=== PATIENT | male | born 1980 | race Caucasian/White ===

== ENCOUNTER 2017-03-31 13:46 | Emergency (ER) | payer BC ==
[~2017-03-31] VITALS: Ht 167.6 cm; Wt 91.5 kg
[2017-03-31 15:06] LABS: HEMATOCRIT 42.9 % (38.0-50.0); MCH 33.1 PG (29.0-34.0); MCHC 34.5 G/DL (30.0-36.0); MEAN PLAT.VOLUME 10.6 uM^3 (9.0-12.4); PLATELET COUNT 227 K/uL (156-360); RBC DIS.WIDTH-CV 12.9 % (11.8-14.6); RBC DIS.WIDTH-SD 46.1 % (39-53); RED BLOOD COUNT 4.47 M/uL (4.00-5.50); WHITE BLOOD COUNT 7.5 K/uL (4.1-10.2)
[2017-03-31 15:18] LABS: CHLORIDE 108 mEq/L (99-109); POTASSIUM 4.4 mEq/L (3.7-5.4); SODIUM 141 mEq/L (136-147)
[2017-03-31 15:20] LABS: GLUCOSE 91 mg/dL (70-99)
[2017-03-31 15:21] LABS: ANION GAP 9 MEQ/L (2-14)
[2017-03-31 15:23] LABS: GFR ESTIMATE (CALCULATED) > 59 mL/min/ (58.99-99999)
[2017-03-31 15:24] LABS: UREA NITROGEN (BUN) 14 mg/dL (9-23)
[2017-03-31 15:27] LABS: TROP-I INTERPRETATION NEGATIVE; TROPONIN-I < 0.01 ng/mL (0.0-0.30)
[2017-03-31 17:50] VITALS: BP 133/85
== END 2017-03-31 17:59 | disposition home or self-care (01) ==
LOC: EME 13:46
PROVIDERS: Emergency Medicine
DX: H93.13 Tinnitus, bilateral (principal); R00.2 Palpitations; F17.200 Nicotine dependence, unspecified, uncomplicated
CPT/HCPCS: 70450; 80048; 84484; 85027; 93005; 99281; 99284